=== PATIENT | male | born 1965 | race Two or more races ===

== ENCOUNTER 2018-05-27 09:03 | Emergency (ER) | payer OTHER, MEDICAID ==
[~2018-05-27] VITALS: Ht 170.2 cm; Wt 72.6 kg
--- NOTE | 2018-05-27 09:29 | NUR ---
Dr Hurst at the bedside for MSE.
--- NOTE | 2018-05-27 09:45 | NUR ---
Pt out of ER for Ct.
[2018-05-27 10:06] VITALS: BP 115/76
--- NOTE | 2018-05-27 10:09 | NUR ---
Patient discharged to home in stable conditon. Written and verbal after care instructions given. Patient verbalizes understanding of instructions. Pt left Er w/ steady gait accompained by .
== END 2018-05-27 10:10 | disposition home or self-care (01) ==
LOC: ER 09:03
DX: S16.1XXA Strain of muscle, fascia and tendon at neck level, initial encounter (principal); S20.219A Contusion of unspecified front wall of thorax, initial encounter; S00.03XA Contusion of scalp, initial encounter; S50.811A Abrasion of right forearm, initial encounter; E78.00 Pure hypercholesterolemia, unspecified; V49.49XA Driver injured in collision with other motor vehicles in traffic accident, initial encounter; Y93.89 Activity, other specified; Y92.410 Unspecified street and highway as the place of occurrence of the external cause; Y99.8 Other external cause status
CPT/HCPCS: 70450; 71045; 72125; 93005; A4663